=== PATIENT | male | born 1980 | race Caucasian/White ===

== ENCOUNTER 2025-03-01 19:53 | Emergency (ER) | payer BC ==
[2025-03-01 20:09] VITALS: TEMP 97.8
[2025-03-01] MEDS ORDERED: TORAdol 30 mg Injection ONE (20:30)
[2025-03-01] MEDS: TORAdol 30 mg Injection IV ONE (20:32)
[2025-03-01 20:36] LABS: BASOPHIL % 0.6 % (0.2-1.2); Basophil (Absolute #) 0.08 x10^3/uL (0.01-0.08); Eosinophil (Absolute #) 0.20 x10^3/uL (0.04-0.54); Hematocrit 43.9 % (40.1-51.0); Hemoglobin 14.4 g/dL (13.7-17.5); IMMATURE GRAN # 0.14 x10^3u/L (0.001-0.031); IMMATURE GRAN % 1.1 % (0.001-0.429); Lymphocyte (Absolute #) 3.46 x10^3/uL (1.32-3.57); Mean Corpuscular Hemoglobin 29.4 pg (25.7-32.2); Mean Corpuscular Hgb Concent. 32.8 g/dL (32.3-36.5); Monocyte (Absolute #) 0.69 x10^3/uL (0.30-0.82); NUCLEATED RBC # 0.00 x10^3u/L (0.00-0.012); NUCLEATED RBC % 0.0 % (0.00-0.2); Platelet Count 223 x10^3/uL (163-337); Red Blood Count 4.90 x10^6/uL (4.63-6.08); White Blood Count 12.3 x10^3/uL (4.23-9.07)
[2025-03-01 20:43] LABS: Glucose, Urine Negative (Negative); Protein,Urine Dip 30 (Negative); RBC >100 /HPF (0-5)
[2025-03-01 21:09] LABS: Calcium 8.7 mg/dL (8.4-10.2); Carbon Dioxide 23.0 mmol/L (22-30); Creatinine 1 0.81 mg/dL (0.66-1.25); EST GLOMERULAR FILTRATION RATE 110.8 ML/MIN; Glucose 182.0 mg/dL (74-106); Potassium 4.3 mmol/L (3.5-5.1); SGOT/AST 31.0 U/L (17-59); SGPT/ALT 39.0 U/L (0-50); Total Protein 6.7 g/dL (6.3-8.2)
[2025-03-01 21:20] VITALS: O2SAT 98
--- NOTE | 2025-03-01 21:32 | ERPHSYRPT ---
- History of Present Illness Time Seen by Provider: 03/01/25 21:28 Source: patient Exam Limitations: no limitations Patient Subjective Stated Complaint: pt states " he was out to eat and he starting getting really tight pain in the left side of his back around to the front of my stomach." "started to think that I had to poop but that is not it." Triage Nursing Assessment: pt arrived to ED with c/o Left sided back pain that radiates to the left side of the abdomen. Pt is A&Ox4 ambulates per self. states that pain began at 1730 this evening while eating dinner. rates pain 2/10. states pain is in the lower left back to LLQ. Denies NVD. Last BM this morning and was normal for him. skin is PWD. Resp. easy, even and non labored. Denies painful urination. UA collected, urine appears dark. Physician History: Patient is a 44-year-old male no significant past medical history presents to our ED with acute onset left flank pain. Symptoms started just prior to arrival while he was eating. The pain was followed by the urge to defecate. No trauma no fever. Symptoms started approximately 5:30 PM this evening. Pain is intermittent. Patient currently rates his pain 2 out of 10. Pain radiates from his left posterior flank down to lower groin area. Patient otherwise feels well. No obvious hematuria. No dysuria urinary frequency or urgency. Patient's is at the bedside. They voiced no other complaints or concerns at this time. Portions of this note were created with voice recognition technology. There may be grammatical, spelling, punctuation or sound alike errors Timing/Duration: today Severity: moderate Modifying Factors: Improves With: nothing Associated Symptoms: denies symptoms Allergies/Adverse Reactions: No Known Drug Allergies Allergy (Verified 03/01/25 20:09) Hx Tetanus, Diphtheria Vaccination/Date Given: Yes Hx Influenza Vaccination/Date Given: No Hx Pneumococcal Vaccination/Date Given: No Immunizations Up to Date: No Travel Risk - International Travel Have you traveled outside of the country in past 3 weeks: No - Emerging Infectious Disease Are you exhibiting symptoms associated with any current EIDs: No - Review of Systems All Other Systems: Reviewed and Negative - Past Medical History Pertinent Past Medical History: No Neurological History: No Pertinent History ENT History: No Pertinent History Cardiac History: No Pertinent History Respiratory History: No Pertinent History Endocrine Medical History: No Pertinent History Musculoskeletal History: No Pertinent History GI Medical History: No Pertinent History History: No Pertinent History Psycho-Social History: No Pertinent History Male Reproductive Disorders: No Pertinent History - Past Surgical History Past Surgical History: Yes Neuro Surgical History: No Pertinent History Cardiac: No Pertinent History Respiratory: No Pertinent History Gastrointestinal: No Pertinent History Genitourinary: No Pertinent History Musculoskeletal: Orthopedic Surgery Male Surgical History: No Pertinent History Other Surgical History: foreign body removal. carpal tunnel surgery - Social History Smoking Status: Never smoker How long have you smoked: 35 years Exposure to second hand smoke: Yes Drug Use: none - Social Determinants of Health Will the patient participate in the screening: Yes Do you worry about a steady place to live?: Yes Do you have any problems with any of the following?: No known problems In the past 12 months,have you had to go without utilities?: No Transportation Issues: No Has anyone in your support network made you feel unsafe?: No Have you or anyone in your house had to go w/o enough food: No - Nursing Vital Signs Nursing Vital Signs: Initial Vital Signs Temperature 97.8 F 03/01/25 19:55 Pulse Rate 80 03/01/25 19:55 Respiratory Rate 18 03/01/25 19:55 Blood Pressure 154/82 03/01/25 19:55 O2 Sat by Pulse Oximetry 100 03/01/25 19:55 Pain Scale Pain Intensity 2 - Physical Exam General Appearance: no apparent distress, alert Eye Exam: PERRL/EOMI, eyes nml inspection Ears, Nose, Throat Exam: normal ENT inspection, moist mucous membranes Neck Exam: normal inspection, full range of motion Respiratory Exam: normal breath sounds, lungs clear, No respiratory distress Cardiovascular Exam: regular rate/rhythm, normal peripheral pulses Gastrointestinal/Abdomen Exam: soft, normal bowel sounds, other (No flank tenderness to palpation), No tenderness, No mass Back Exam: normal inspection, normal range of motion, No CVA tenderness, No vertebral tenderness Extremity Exam: normal inspection, normal range of motion, pelvis stable Neurologic Exam: alert, oriented x 3, cooperative, normal mood/affect, sensation nml, No motor deficits Skin Exam: normal color, warm, dry, No rash Lymphatic Exam: No adenopathy SpO2 Interpretation: normal SpO2: 98 O2 Delivery: Room Air - Course Nursing assessment & vital signs reviewed: Yes - CT Exams Abdomen/Pelvis CT Interpretation: Tele-radiologist Report (No comps. 2 to 3 mm stone left proximal ureter with minimal hydronephrosis. Additional punctate stone in each kidney. Moderate L5-S1 degenerative disc disease) Ordered Tests: Active Orders 24 hr Category Date Time Status IV Insertion STAT Care 03/01/25 20:26 Active ABDOMEN AND PELVIS W/0 CONTRAS [CT] Stat Exams 03/01/25 20:26 Taken CBC W DIFF Stat Lab 03/01/25 20:25 Completed CMP Stat Lab 03/01/25 20:25 Completed CULTURE,URINE Stat Lab 03/01/25 20:25 Received TROPONIN Q4H Lab 03/01/25 20:25 Completed TROPONIN Q4H Lab 03/02/25 00:30 Ordered TROPONIN Q4H Lab 03/02/25 04:30 Ordered UA W/RFX UR CULTURE Stat Lab 03/01/25 20:25 Completed Medication Summary Discontinued Medications Generic Name Dose Route Start Last Admin Trade Name Freq PRN Reason Stop Dose Admin Sodium Chloride 1,000 mls @ 999 mls/hr 03/01/25 20:26 03/01/25 21:33 Sodium Chloride 0.9% 1000 Ml IV 03/01/25 21:26 Infused .Q1H1M STA Infusion Sodium Chloride Confirm 03/01/25 20:31 Sodium Chloride 0.9% 1000 Ml Administered 03/01/25 20:32 Dose 1,000 mls @ ud .ROUTE .STK-MED ONE Ceftriaxone Sodium 1 gm in 100 mls @ 200 mls/hr 03/01/25 21:41 03/01/25 22:10 Rocephin 1 Gm / 100 Ml Nacl IV 03/01/25 22:10 Infused STAT ONE Infusion Ceftriaxone Sodium Confirm 03/01/25 21:45 Rocephin 1 Gm / 100 Ml Nacl Administered 03/01/25 21:46 Dose 1 gm in 100 mls @ ud IV .STK-MED ONE Ketorolac Tromethamine 30 mg 03/01/25 20:26 03/01/25 20:32 Ketorolac Tromethamine 30 Mg/Ml Inj IV 03/01/25 20:27 30 mg STAT ONE Administration Ketorolac Tromethamine Confirm 03/01/25 20:30 Ketorolac Tromethamine 30 Mg/Ml Inj Administered 03/01/25 20:31 Dose 30 mg .ROUTE .STK-MED ONE Lab/Rad Data: Laboratory Result Diagrams 03/01/25 20:25 03/01/25 20: Laboratory Results 03/01/25 03/01/25 03/01/25 Range/Units 20:25 20:25 20: WBC 12.3 H (4.23-9.07) x10^3/uL RBC 4.90 (4.63-6.08) x10^6/uL Hgb 14.4 (13.7-17.5) g/dL Hct 43.9 (40.1-51.0) % MCV 89.6 (79.0-92.2) fL MCH 29.4 (25.7-32.2) pg MCHC 32.8 (32.3-36.5) g/dL RDW 12.7 (11.6-14.4) % Plt Count 223 (163-337) x10^3/uL MPV 11.5 (9.4-12.4) fL Gran % 63.0 (34.0-67.9) % Immature Gran % (Auto) 1.1 H (0.001-0.429) % Nucleat RBC Rel Count 0.0 (0.00-0.2) % Eos # (Auto) 0.20 (0.04-0.54) x10^3/uL Immature Gran # (Auto) 0.14 H (0.001-0.031) x10^3u/L Absolute Lymphs (auto) 3.46 (1.32-3.57) x10^3/uL Absolute Monos (auto) 0.69 (0.30-0.82) x10^3/uL Absolute Nucleated RBC 0.00 (0.00-0.012) x10^3u/L Lymphocytes % 28.1 (21.8-53.1) % Monocytes % 5.6 (5.3-12.2) % Eosinophils % 1.6 (0.8-7.0) % Basophils % 0.6 (0.2-1.2) % Absolute Granulocytes 7.75 H (1.78-5.38) x10^3/uL Basophils # 0.08 (0.01-0.08) x10^3/uL Sodium 137 (135-145) mmol/L Potassium 4.3 (3.5-5.1) mmol/L Chloride 107 (98-107) mmol/L Carbon Dioxide 23 (22-30) mmol/L Anion Gap 11.6 (5-15) MEQ/L BUN 17 (9-20) mg/dL Creatinine 0.81 (0.66-1.25) mg/dL Estimated GFR 110.8 ML/MIN Glucose 182 H (74-106) mg/dL Calcium 8.7 (8.4-10.2) mg/dL Total Bilirubin 0.20 (0.2-1.3) mg/dL AST 31 (17-59) U/L ALT 39 (0-50) U/L Alkaline Phosphatase 101 (38-126) U/L Troponin I < 0.012 (0.000-0.033) ng/mL Serum Total Protein 6.7 (6.3-8.2) g/dL Albumin 4.2 (3.5-5.0) g/dL Urine Color (Yellow) Urine Appearance (Clear) Urine pH (4.6-8.0) Ur Specific [place] (1.005-1.030) Urine Protein (Negative) Urine Glucose (UA) (Negative) mg/dL Urine Ketones (Negative) Urine Blood (Negative) Urine Nitrite (Negative) Urine Bilirubin (Negative) Urine Urobilinogen (0.2) mg/dL Ur Leukocyte Esterase (Negative) U Hyaline Cast (Auto) (0-2) /LPF Urine Microscopic RBC (0-5) /HPF Urine Microscopic WBC (0-5) /HPF Ur Epithelial Cells (None Seen) /HPF Urine Bacteria (None Seen) /HPF Urine Culture Reflexed (NO) 03/01/25 Range/Units 20:25 WBC (4.23-9.07) x10^3/uL RBC (4.63-6.08) x10^6/uL Hgb (13.7-17.5) g/dL Hct (40.1-51.0) % MCV (79.0-92.2) fL MCH (25.7-32.2) pg MCHC (32.3-36.5) g/dL RDW (11.6-14.4) % Plt Count (163-337) x10^3/uL MPV (9.4-12.4) fL Gran % (34.0-67.9) % Immature Gran % (Auto) (0.001-0.429) % Nucleat RBC Rel Count (0.00-0.2) % Eos # (Auto) (0.04-0.54) x10^3/uL Immature Gran # (Auto) (0.001-0.031) x10^3u/L Absolute Lymphs (auto) (1.32-3.57) x10^3/uL Absolute Monos (auto) (0.30-0.82) x10^3/uL Absolute Nucleated RBC (0.00-0.012) x10^3u/L Lymphocytes % (21.8-53.1) % Monocytes % (5.3-12.2) % Eosinophils % (0.8-7.0) % Basophils % (0.2-1.2) % Absolute Granulocytes (1.78-5.38) x10^3/uL Basophils # (0.01-0.08) x10^3/uL Sodium (135-145) mmol/L Potassium (3.5-5.1) mmol/L Chloride (98-107) mmol/L Carbon Dioxide (22-30) mmol/L Anion Gap (5-15) MEQ/L BUN (9-20) mg/dL Creatinine (0.66-1.25) mg/dL Estimated GFR ML/MIN Glucose (74-106) mg/dL Calcium (8.4-10.2) mg/dL Total Bilirubin (0.2-1.3) mg/dL AST (17-59) U/L ALT (0-50) U/L Alkaline Phosphatase (38-126) U/L Troponin I (0.000-0.033) ng/mL Serum Total Protein (6.3-8.2) g/dL Albumin (3.5-5.0) g/dL Urine Color Yellow (Yellow) Urine Appearance Cloudy A (Clear) Urine pH 6.5 (4.6-8.0) Ur Specific [place] >=1.030 A (1.005-1.030) Urine Protein 30 (Negative) Urine Glucose (UA) Negative (Negative) mg/dL Urine Ketones Trace A (Negative) Urine Blood Large A (Negative) Urine Nitrite Negative (Negative) Urine Bilirubin Negative (Negative) Urine Urobilinogen 1.0 A (0.2) mg/dL Ur Leukocyte Esterase Trace A (Negative) U Hyaline Cast (Auto) NONE SEEN (0-2) /LPF Urine Microscopic RBC >100 A (0-5) /HPF Urine Microscopic WBC 6-10 A (0-5) /HPF Ur Epithelial Cells None Seen (None Seen) /HPF Urine Bacteria None Seen (None Seen) /HPF Urine Culture Reflexed YES (NO) - Progress Progress: improved Progress Note: Patient is a 44-year-old male no significant past medical history presents to our ED with acute onset left flank pain. Symptoms started just prior to arrival while he was eating. Physical exam reveals left flank pain. No CVA tenderness. CT scan reveals a 2 to 3 mm proximal kidney stone with minimal hydronephrosis. Incidental L5-S1 degenerative disc disease. Left punctate nephrolithiasis observed as well. Case discussed with Dr. Ramirez urologist at [facility] who feels that patient does not have a urinary tract infection. We discussed the urinalysis findings in detail including laboratory workup. He advises discharge home no antibiotics indicated. Patient to be discharged home with Flomax and pain medication with early family doctor or urology follow-up. Patient reassessed. No active pain at this time. Patient states he is ready for discharge. He voices no other complaints or concerns at this time. Spoke to urology at 10:51 PM. Portions of this note were created with voice recognition technology. There may be grammatical, spelling, punctuation or sound alike errors Complexity of problem addressed is moderate acute complicated. No critical care time. Complex of data reviewed and analyzed is extensive. Test ordered chest reviewed results analyzed and correlated clinically with history and physical exam. Management discussed with urology. Risk of complication and or risk of morbidity/mortality of patient management is moderate. A prescription for Toradol, [place] and Flomax forwarded to patient's pharmacy. Vital stable. Time spent to discharge patient is approximately 15 minutes. Plan of care established for shared decision making. No social determinants of health present to impede follow-up. Portions of this note were created with voice recognition technology. There may be grammatical, spelling, punctuation or sound alike errors 03/01/25 22:58 Counseled pt/family regarding: lab results, diagnosis, need for follow-up, rad results - Departure Departure Disposition: Home Clinical Impression: Ureterolithiasis, Hydronephrosis, Renal colic, Hematuria, Hyperglycemia, Dehydration, Nephrolithiasis, Degenerative disc disease Condition: Stable Critical Care Time: No Referrals: CASSI MENG NP [Primary Care Provider, [facility]] - Follow up/PCP as directed DERIC CRUZ [COURTESY STAFF, UROLOGY] - Follow up/PCP as directed Additional Instructions: Discharge/Care Plan PABLO MEADE was seen on 03/01/25 in the Emergency Room. The patient was counseled regarding Diagnosis,Lab results, Imaging studies, need for follow up and when to return to the Emergency Room. Prescriptions given: Discharge Note I have spoken with the patient and/or caregivers. I have explained the patient's condition, diagnosis and treatment plan based on the information available to me at this time. I have answered the patient's and/or caregiver's questions and addressed any concerns. The patient and/or caregivers have as good understanding of the patient's diagnosis, condition and treatment plan as can be expected at this point. The vital signs have been stable. The patient's condition is stable and appropriate for discharge from the emergency department. The patient will pursue further outpatient evaluation with the primary care physician or other designated or consulting physician as outlined in the discharge instructions. The patient and/or caregivers are agreeable to this plan of care and follow-up instructions have been explained in detail. The patient and/or caregivers have received these instruction. The patient/and or caregivers are aware that any significant change in condition or worsening of symptoms should prompt an immediate return to this or the closest emergency department or call 911. Prescriptions: Hydrocodone/APAP 5/325 [[place] 5/325 mg] 1 each PO Q6H PRN PRN #10 tablet MDD 4 PRN Reason: Pain Tamsulosin HCl [Flomax] 0.4 mg PO DAILY 7 Days #7 cap Ketorolac Trometh 10 mg Tab [TORAdol 10 MG TABLET] 10 mg PO TID 5 Days #15 tablet
[2025-03-01] MEDS ORDERED: ROCEPHIN 1 GM / 100 ML NaCl 1 GM/100 ML IVPB IV ONE (21:45)
[2025-03-01] MEDS: ROCEPHIN 1 GM / 100 ML NaCl 1 GM/100 ML IVPB IV ONE (21:47)
[2025-03-01] MEDS ORDERED: Flomax 0.4 MG ONE (23:03)
[2025-03-01] MEDS: Flomax 0.4 MG PO STA (23:06)
[2025-03-01 23:14] VITALS: BP 124/66; PULSE 74; RESP 16
--- NOTE | 2025-03-02 08:59 | XRAY ---
Indication: Left flank pain. Multiple contiguous axial images obtained through the abdomen and pelvis without contrast using renal stone protocol. Comparison: None Lung bases clear with incidental tiny right lower lobe calcified granuloma. Heart not enlarged. Proximal left ureter demonstrates 2-3 mm calculus, approximately L4-L5 interspace level. Minimal hydronephrosis/hydroureter favors partial obstructive uropathy. Additional punctate calculus in each kidney. Stomach distended with food. Gallbladder contracted without gallstones. Noncontrasted stomach and bowel loops appear nonobstructed with normal appendix. No free fluid/air. Remaining liver, pancreas, spleen, adrenal glands, kidneys, ureters, and bladder are unremarkable for noncontrast exam. Minimal scattered aortoiliac calcifications without AAA. Osseous structures intact with moderate L5-S1 degenerative disc disease. Impression: 1. 2-3 mm proximal left ureter calculus producing partial obstruction as detailed. Additional bilateral renal punctate calculus. 2. Chronic findings including arteriosclerotic disease, L5-S1 degenerative disc disease, and right lower lobe calcified granuloma.
== END 2025-03-01 23:21 | disposition home or self-care (01) ==
LOC: ED 19:53
DX: N13.2 Hydronephrosis with renal and ureteral calculous obstruction (principal); N23 Unspecified renal colic; R31.9 Hematuria, unspecified; R73.9 Hyperglycemia, unspecified; E86.0 Dehydration; M51.379 Other intervertebral disc degeneration, lumbosacral region without mention of lumbar back pain or lower extremity pain; Z79.899 Other long term (current) drug therapy; Z59.819 Housing instability, housed unspecified